=== PATIENT | male | born 1980 | race Caucasian/White ===

== ENCOUNTER 2022-03-17 14:14 | Emergency (ER) | payer OTHER ==
[2022-03-17] MEDS ORDERED: Lidocaine 1% PF 2 ML SDV INJECT ONE (14:20)
[2022-03-17] MEDS ORDERED: Diphtheria,Pertussis(Acell),Tetanus Vaccine 0.5 ML Syringe IM ONE (14:20)
== END 2022-03-17 14:51 | disposition home or self-care (01) ==
LOC: MW.ED 14:14
DX: S60.352A Superficial foreign body of left thumb, initial encounter (principal); I10 Essential (primary) hypertension; Z86.16 Personal history of COVID-19; Z23 Encounter for immunization; W45.8XXA Other foreign body or object entering through skin, initial encounter
CPT/HCPCS: 90471; 90715; 99283-25

== ENCOUNTER 2023-06-24 07:30 | Day surgery (SDC) | payer OTHER ==
[~2023-06-24 07:30] MED LIST: Lactated Ringers 1,000 ML IV SCH
[2023-06-24] MEDS ORDERED: propofoL 50 ML ONE (08:42)
[2023-06-24] MEDS ORDERED: Propofol 200 MG/20 ML SDV ONE (09:16)
== END 2023-06-24 10:10 | disposition home or self-care (01) ==
LOC: MW.SDS 07:30
PROVIDERS: ATTEND Surgery
DX: K29.50 Unspecified chronic gastritis without bleeding (principal); K21.00 Gastro-esophageal reflux disease with esophagitis, without bleeding; K64.8 Other hemorrhoids; F41.9 Anxiety disorder, unspecified; K59.09 Other constipation; K92.1 Melena; I10 Essential (primary) hypertension; J45.909 Unspecified asthma, uncomplicated; G47.30 Sleep apnea, unspecified; F17.210 Nicotine dependence, cigarettes, uncomplicated; Z79.899 Other long term (current) drug therapy
CPT/HCPCS: 43239; 45378; J2704; J7120

== ENCOUNTER 2024-03-03 12:02 | Emergency (ER) | payer OTHER | END 2024-03-03 13:10 | disposition home or self-care (01) | LOC: MW.ED 12:02 | DX: M25.512 Pain in left shoulder (principal); I10 Essential (primary) hypertension; K21.9 Gastro-esophageal reflux disease without esophagitis; Z79.899 Other long term (current) drug therapy; Z75.8 Other problems related to medical facilities and other health care | CPT/HCPCS: 73030-26-LT; 73030-LT; 99283 ==